=== PATIENT | female | born 1980 | race Two or more races ===

== ENCOUNTER 2021-08-05 23:10 | Emergency (ER) | payer SELFPAY ==
[~2021-08-05] VITALS: Ht 165.1 cm; Wt 57.0 kg
[2021-08-06 00:12] LABS: BASOPHILS % 0.4 % (0.0-2.0); EOSINOPHILS % 0.1 % (0.0-5.0); HEMATOCRIT. 32.9 % (36.0-48.0); HEMOGLOBIN. 10.6 g/dL (12.0-16.0); LYMPHOCYTES % 15.3 % (20.0-50.0); MEAN CORPUSCULAR HEMOGLOBIN 23.7 pg (28.0-32.0); MEAN CORPUSCULAR VOLUME 73.8 fL (81.0-99.0); MEAN PLATELET VOLUME 9.2 fl (7.4-10.4); MONOCYTES % 5.8 % (2.0-8.0); NEUTROPHILS % 78.4 % (40.0-76.0); PLATELET 291 x1000/uL (130-400); RED BLOOD CELL COUNT 4.46 mill/uL (4.2-5.4); RED CELL DISTRIBUTION WIDTH 18.6 % (11.6-14.6)
[2021-08-06 00:15] LABS: CHLORIDE 107 mEq/L (98-107)
[2021-08-06 00:20] LABS: ETHANOL BLOOD < 10 mg/dL
[2021-08-06 00:26] LABS: B-HCG QUANTITATIVE < 1 mIU/mL (<3)
[2021-08-06 01:00] VITALS: BP 122/76
[2021-08-06] MEDS ORDERED: BO1 TP (09:49)
== END 2021-08-06 01:00 | disposition home or self-care (01) ==
LOC: ER 23:10
DX: F41.9 Anxiety disorder, unspecified (principal); I49.9 Cardiac arrhythmia, unspecified
CPT/HCPCS: 36415; 80053; 80320; 84443; 84702; 85025; 93005; 99284; G0480

== ENCOUNTER 2021-08-06 06:59 | Emergency (ER) | payer SELFPAY ==
[~2021-08-06] VITALS: Ht 170.2 cm; Wt 68.0 kg
[2021-08-06] MEDS ORDERED: IBUPROFEN 600MG TABLET PO ONE (07:30)
[2021-08-06 07:47] VITALS: BP 170/110
[2021-08-06 08:56] LABS: *AMPHETAMINES SCREEN URINE NEGATIVE (NEGATIVE)
[2021-08-06 08:57] LABS: *BARBITURATES SCREEN URINE NEGATIVE (NEGATIVE); *BENZODIAZEPINES SCREEN URINE NEGATIVE (NEGATIVE); *COCAINE SCREEN URINE NEGATIVE (NEGATIVE); METHADONE URINE SCREEN NEGATIVE (NEGATIVE); OPIATES URINE SCREEN NEGATIVE (NEGATIVE); PHENCYCLIDINE URINE SCREEN NEGATIVE (NEGATIVE)
[2021-08-06 08:58] LABS: CANNABINOID URINE SCREEN NEGATIVE (NEGATIVE)
[2021-08-06 09:17] LABS: CHLORIDE 106 mEq/L (98-107)
[2021-08-06 09:19] LABS: BASOPHILS % 0.3 % (0.0-2.0); EOSINOPHILS % 0.1 % (0.0-5.0); HEMATOCRIT. 35.5 % (36.0-48.0); HEMOGLOBIN. 11.1 g/dL (12.0-16.0); LYMPHOCYTES % 17.1 % (20.0-50.0); MEAN CORPUSCULAR HEMOGLOBIN 23.4 pg (28.0-32.0); MEAN CORPUSCULAR VOLUME 74.4 fL (81.0-99.0); MEAN PLATELET VOLUME 9.5 fl (7.4-10.4); MONOCYTES % 4.7 % (2.0-8.0); NEUTROPHILS % 77.8 % (40.0-76.0); PLATELET 331 x1000/uL (130-400); RED BLOOD CELL COUNT 4.77 mill/uL (4.2-5.4); RED CELL DISTRIBUTION WIDTH 18.3 % (11.6-14.6)
[2021-08-06 09:21] LABS: ETHANOL BLOOD < 10 mg/dL
[2021-08-06] MEDS ORDERED: BO1 TP (09:49)
[2021-08-06] MEDS ORDERED: BACITRACIN ZINC OINT UDPKT TOP ONE (10:00)
== END 2021-08-06 10:25 | disposition home or self-care (01) ==
LOC: ER 07:19
DX: S90.111A Contusion of right great toe without damage to nail, initial encounter (principal); S90.411A Abrasion, right great toe, initial encounter; W22.8XXA Striking against or struck by other objects, initial encounter; Y93.89 Activity, other specified; Y92.89 Other specified places as the place of occurrence of the external cause; Y99.8 Other external cause status; I10 Essential (primary) hypertension
CPT/HCPCS: 36415; 73660; 80053; 80305; 80320; 85025; 99284; A4217; G0480